=== PATIENT | male | born 1975 | race Caucasian/White ===

== ENCOUNTER 2018-03-19 13:59 | Observation (INO) ==
[2018-03-20] MEDS ORDERED: Acetaminophen 500 MG Tablet PO PRN (00:01)
--- NOTE | 2018-03-20 07:14 | P.PN ---
Subjective Interval history: Follow-up chest pain. Patient seen and examined, lying in bed comfortably no apparent distress. Patient does state he slept well. Does have mild continued left sternal chest pain, worse with deep breathing. Vital signs are stable overnight. Afebrile. Patient will undergo cardiac treadmill stress test today. Physical Exam Vital signs: Vital Signs 03/20/18 02:32 03/20/18 04:00 Temperature 99.2 F 99.2 F Pulse Rate 96 H 97 H Respiratory Rate 18 16 Blood Pressure 117/55 L 116/56 L Pulse Oximetry 98 Intake & Output 03/19/18 03/20/18 03/20/18 18:59 06:59 18:59 Intake Total 480 / 480 Balance 480 / 480 Weight 105.9 kg 107.3 kg Intake: Oral 480 / 480 Other: # Voids 1 # Bowel Movements 0 Results - Labs Laboratory Results - last 24 hr 03/19/18 03/19/18 03/19/18 14:45 17:00 17:10 Total Creatine Kinase 137 133 CK-MB (CK-2) 0.9 0.8 Troponin I LESS THAN 0.02 L LESS THAN 0.02 L Triglycerides 172 H Cholesterol 167 LDL Cholesterol 77 HDL Cholesterol 55.8 Cholesterol/HDL Ratio 2.99 Assessment and Plan - Plan 43-year-old patient with chest pain: Patient has been admitted chest pain center for observation. Serial EKGs and serial troponins were ordered for ruling out ACS purposes. Serial troponin trend flat. EKG reviewed showing some T-wave inversion in V1, V2 and V3 and V4. Patient's chest pain has improved but still present with use of nitroglycerin. Will add Toradol today. Assess response. Will continue cardiac telemetry, monitor for any arrhythmias. Mild elevation of triglycerides on panel. Chest x-ray reviewed no acute disease. Aorta CTA showing no dissection or emboli. Will add aspirin. Patient's risk factors include high cholesterol. Patient will undergo a cardiac treadmill stress test to further rule out any ischemia. Patient is stable at this time and agreeable to the plan. Further hospitalization and treatment plan will depend on improvement. DVT prophylaxis: SCDs. Patient underwent a cardiac treadmill stress test, images reviewed by on-call relief captain Dr. Dickerson, there is some ST depression in leads II, III and aVF. With patient's risk factors of descent as well as characteristics of chest pain patient will undergo a myocardial perfusion scan. Further hospitalization and intervention will depend on nuclear imaging results. Patient is stable at this time and agreeable to plan. Myocardial perfusion scan was negative. Patient was discharged home to follow- up with PCP. All symptoms resolved. Vital signs stable.
[2018-03-20] MEDS ORDERED: Ketorolac Inj 30 MG/ML (IVP) Vial IV.PUSH ONE (11:00)
--- NOTE | 2018-03-20 18:20 | NM ---
EXAM DATE: 03/20/2018 5:47 PM EDT AGE/SEX: 43 years / Male INDICATIONS:Angina. . Left chest pain CLINICAL DATA: This is the patient's initial encounter. Patient reports that signs and symptoms have been present for 1 day and indicates a pain score of 10/10. MEDICAL/SURGICAL HISTORY: None. None. COMPARISON: [facility], CTA THORACIC ABDOMINAL AORTA W 3D RECON, 03/19/2018. . DOSE: 35 mCi Tc 99m Myoview at stress 11 mCi [id number] at rest 0.4 mg Lexiscan STRESS SYMPTOMS: Nausea. EJECTION FRACTION: 56 % TECHNIQUE: The patient underwent pharmacologic stress with infusion of prescribed dose. Continuous ECG tracing was monitored during stress. Gated SPECT imaging was performed after stress and conventi onal SPECT imaging was performed at rest. The examination was performed on a SPECT/CT scanner, both attenuation and non-corrected datasets were reviewed. FINDINGS: Distribution: The maximum perfused segment at stress is in the posterior basal wall. Perfusion Study: The pattern of perfusion at stress is within normal limits. Gated Study: There are intact wall motion and wall thickening without hypokinetic or dyskinetic segm ents. The ejection fraction is calculated at 56%. RISK CATEGORY: Low (<1% Annual Motality Rate) CONCLUSION: Negative examination. Electronically signed by: Damon Colindres MD 03/20/2018 6:19 PM EDT
[2018-03-20] MEDS ORDERED: Regadenoson Inj 0.4 MG/5 ML Syringe IV.PUSH ONE (18:47)
--- NOTE | 2018-03-27 22:30 | TR ---
Date Performed: 03/20/2018 Time Performed: 13:47:53 DOCTOR: Simon Crooks DRUG LIST: CLINICAL HISTORY: REASON FOR TEST: REASON FOR ENDING: OBSERVATION: CONCLUSION: [employer] protocol performed test stopped sec to reaching target heart rate. Great exerc ise tolerance. No reproducible chest discomfort. Recovery quick and unremarkable. Good BP response.Ma ximum VC=523 Target AN=223 Maximum KQ=613/90 Total Exercise Time=7:01 COMMENTS: At peak exercise St depression was noted resolving quickly in recovery. This suggests a falsely positive test. Will plan nuclear imaging
--- NOTE | 2018-06-21 12:48 | TR ---
Date Performed: 03/20/2018 Time Performed: 16:59:28 DOCTOR: Simon Crooks DRUG LIST: CLINICAL HISTORY: REASON FOR TEST: Chest pain REASON FOR ENDING: OBSERVATION: CONCLUSION: COMMENTS: Lexiscan stress test was performed under standard four minute protocol. Radionuclide was injected one minute prior to ending the test. No electrocardiographic abormalities were present t o suggest ischemia. Nuclear imaging and interpretation are pending.
== END 2018-03-20 18:48 | disposition home or self-care (01) ==
LOC: PH3 13:59
PROVIDERS: ADMIT Hospitalist; ATTEND Hospitalist